=== PATIENT | female | born 1975 | race Caucasian/White ===

== ENCOUNTER 2017-03-28 20:35 | Emergency (ER) | payer MEDICAID, OTHER ==
[~2017-03-28] VITALS: Ht 165.1 cm; Wt 93.7 kg
[~2017-03-28 20:35] MED LIST: LURA80 PO; PALI6 PO; PREN1TAB80 PO
[2017-03-28] MEDS ORDERED: SODIUM CHLORIDE 0.9% 1,000 ML IV ONE (20:43)
[2017-03-28] MEDS ORDERED: ONDANSETRON HCL 4 MG/2 ML VIAL IVP ONE (20:45)
[2017-03-28] MEDS ORDERED: PROZ10 PO (20:46)
[2017-03-28] MEDS ORDERED: DEXT1DRO8 OP (20:46)
[2017-03-28] MEDS ORDERED: OLAN10TA6 PO ×2 (20:46)
[2017-03-28] MEDS ORDERED: BENZ1TAB10 PO (20:46)
[2017-03-28] MEDS ORDERED: RANI150T7 PO (20:46)
[2017-03-28] MEDS ORDERED: LORA0.5T2 PO ×2 (20:46)
[2017-03-28] MEDS ORDERED: ZIPR60CA2 PO (20:46)
[2017-03-28] MEDS ORDERED: LORA1TAB3 PO (20:46)
[2017-03-28] MEDS ORDERED: LORA2VIA32 IV (20:46)
[2017-03-28] MEDS ORDERED: ONDA4 PO (20:46)
[2017-03-28] MEDS ORDERED: OLAN5TAB40 PO (20:46)
[2017-03-28 20:52] LABS: GLUCOSE,POINT OF CARE 121 MG/DL (70-110)
[2017-03-28 21:07] LABS: BASOPHILS % (AUTO) 0.7 % (0.0-2.0); EOSINOPHILS % (AUTO) 0.2 % (1.0-6.0); HEMATOCRIT 40.2 % (36-46); HEMOGLOBIN 13.7 g/dL (12.0-16.0); LYMPHOCYTES % (AUTO) 11.6 % (22.0-44.0); MEAN CORPUSCULAR HEMOGLOBIN 28.7 pg (26.0-34.0); MEAN CORPUSCULAR HGB CONC 34.2 G/dL (31.0-37.0); MEAN CORPUSCULAR VOLUME 84 fL (80-100); MONOCYTES # (AUTO) 1.2 K/uL (0.1-1.0); MONOCYTES % (AUTO) 6.9 % (2.0-9.0); NEUTROPHILS # (AUTO) 14.2 K/uL (1.8-7.7); NEUTROPHILS % (AUTO) 80.6 % (40.0-70.0); PLATELET COUNT (AUTO) 271 K/uL (150-450); RED BLOOD CELL COUNT(AUTO) 4.78 MIL/uL (4.00-5.20); WHITE BLOOD COUNT (AUTO) 17.6 K/uL (4.5-11.0)
[2017-03-28 21:19] LABS: APPEARANCE,URINE CLOUDY (CLEAR); GLUCOSE, URINE (UA) NEGATIVE (NEGATIVE); KETONES,URINE NEGATIVE (NEGATIVE); LEUKOCYTE ESTERASE ,URINE TRACE (NEGATIVE); OCCULT BLOOD,URINE NEGATIVE (NEGATIVE); PH,URINE 6.5 (5.0-8.0); PROTEIN,URINE NEGATIVE (NEGATIVE)
[2017-03-28 21:27] LABS: ADD UA MICROSCOPIC YES
[2017-03-28 21:28] LABS: ANION GAP 13 mmol/L (8-16); CALCIUM, TOTAL 9.5 mg/dL (8.8-10.5); CARBON DIOXIDE 24 mmol/L (22-29); CHLORIDE 103 mmol/L (98-107); CREATININE 0.57 mg/dL (0.60-1.30); GLOMERULAR FILTR. RATE CALC > 60 mL/min (>60); POTASSIUM 3.3 mmol/L (3.5-5.1); SODIUM SERUM 140 mmol/L (136-145); UREA NITROGEN, BLOOD 9 mg/dL (7-18)
[2017-03-28 21:34] LABS: ALANINE AMINOTRANSFERASE 32 U/L (12-78); ALBUMIN 3.8 g/dL (3.4-5.0); ASPARTATE AMINOTRANSFERASE 11 U/L (15-37); BILIRUBIN,TOTAL 0.6 mg/dL (0.1-1.0); TOTAL PROTEIN, SERUM 8.3 g/dL (6.4-8.2)
[2017-03-28 21:39] LABS: RBC,URINE 0-2 /HPF (0-2); SQUAMOUS EPITHELIAL CELL,UR Few /LPF (None Seen)
[2017-03-29 00:33] VITALS: BP 128/75
== END 2017-03-29 01:14 | disposition home or self-care (01) ==
LOC: EMS 20:37
DX: R10.13 Epigastric pain (principal); F17.210 Nicotine dependence, cigarettes, uncomplicated; F19.90 Other psychoactive substance use, unspecified, uncomplicated
CPT/HCPCS: 36415; 74177; 80053; 81001; 82962; 83690; 84702; 85025; 87077; 87086; 87186; 96374; 96375; 99285; J2405; J7030

== ENCOUNTER 2018-07-22 06:32 | Emergency (ER) | payer OTHER ==
[~2018-07-22] VITALS: Ht 170.2 cm; Wt 90.9 kg
[~2018-07-22 06:32] MED LIST changes: +BENZ1TAB10 PO; +DEXT1DRO8 OP; +LORA0.5T2 PO; +LORA1TAB3 PO; +LORA2VIA33 IV; -LURA80 PO; +OLAN10TA6 PO; +OLAN5TAB40 PO; +ONDA4 PO; -PALI6 PO; -PREN1TAB80 PO; +PROZ10 PO; +RANI150T7 PO; +ZIPR60CA2 PO
[2018-07-22] MEDS ORDERED: OXYB5TAB10 PO (06:56)
[2018-07-22] MEDS ORDERED: BISA10SU8 RC (06:56)
[2018-07-22] MEDS ORDERED: LACT10PA5 PO (06:56)
[2018-07-22 07:16] LABS: BASOPHILS % (AUTO) 0.7 % (0.0-2.0); EOSINOPHILS % (AUTO) 0.8 % (1.0-6.0); HEMATOCRIT 37.3 % (36-46); HEMOGLOBIN 12.5 g/dL (12.0-16.0); LYMPHOCYTES # (AUTO) 2.5 K/uL (1.0-4.8); LYMPHOCYTES % (AUTO) 20.2 % (22.0-44.0); MEAN CORPUSCULAR HEMOGLOBIN 28.6 pg (26.0-34.0); MEAN CORPUSCULAR HGB CONC 33.5 G/dL (31.0-37.0); MEAN CORPUSCULAR VOLUME 86 fL (80-100); MONOCYTES # (AUTO) 1.3 K/uL (0.1-1.0); MONOCYTES % (AUTO) 10.7 % (2.0-9.0); NEUTROPHILS # (AUTO) 8.3 K/uL (1.8-7.7); NEUTROPHILS % (AUTO) 67.6 % (40.0-70.0); PLATELET COUNT (AUTO) 221 K/uL (150-450); RED BLOOD CELL COUNT(AUTO) 4.35 MIL/uL (4.00-5.20); RED CELL DISTRIBUTION WIDTH 14.4 % (11.5-14.5)
[2018-07-22 07:29] LABS: ANION GAP 10 mmol/L (8-16); CALCIUM, TOTAL 9.2 mg/dL (8.8-10.5); CARBON DIOXIDE 23 mmol/L (22-29); CHLORIDE 104 mmol/L (98-107); GLOMERULAR FILTR. RATE CALC > 60 mL/min (>60); GLUCOSE,RANDOM 117 mg/dL (70-110); POTASSIUM 3.3 mmol/L (3.5-5.1); SODIUM SERUM 137 mmol/L (136-145); UREA NITROGEN, BLOOD 5 mg/dL (7-18)
[2018-07-22 07:43] LABS: ALANINE AMINOTRANSFERASE 48 U/L (12-78); ALBUMIN 3.5 g/dL (3.4-5.0); ALKALINE PHOSPHATASE 80 U/L (46-116); ASPARTATE AMINOTRANSFERASE 59 U/L (15-37); BILIRUBIN,TOTAL 0.4 mg/dL (0.1-1.0); HCG,QUANTITATIVE < 1 mIU/mL (0-6); TOTAL PROTEIN, SERUM 7.8 g/dL (6.4-8.2)
[2018-07-22 08:25] LABS: AMPHET/METH SCREEN,URINE NEGATIVE (NEGATIVE); BARBITURATE SCREEN, URINE NEGATIVE (NEGATIVE); BENZODIAZEPINES SCREEN,URINE NEGATIVE (NEGATIVE); CANNABINOID SCREEN,URINE NEGATIVE (NEGATIVE); COCAINE SCREEN,URINE NEGATIVE (NEGATIVE); METHADONE SCREEN, URINE NEGATIVE (NEGATIVE); OPIATE SCREEN,URINE NEGATIVE (NEGATIVE); PHENCYCLIDINE SCREEN,URINE NEGATIVE (NEGATIVE)
[2018-07-22 09:22] VITALS: BP 129/85
[2018-07-22] MEDS ORDERED: LORazepam 2 MG TABLET PO ONE (09:30)
[2018-07-22] MEDS ORDERED: HALOPERIDOL 5 MG TABLET PO ONE (09:30)
[2018-07-22] MEDS ORDERED: POTASSIUM CHLORIDE 20 MEQ ER TABLET PO ONE (09:45)
== END 2018-07-22 10:25 | disposition home or self-care (01) ==
LOC: EMS 06:33
DX: F20.9 Schizophrenia, unspecified (principal); F15.10 Other stimulant abuse, uncomplicated; F17.210 Nicotine dependence, cigarettes, uncomplicated; Z90.49 Acquired absence of other specified parts of digestive tract; Z79.899 Other long term (current) drug therapy
CPT/HCPCS: 36415; 80053; 80307; 84702; 85025; 99284; 99406; G0480

== ENCOUNTER 2024-07-29 15:44 | Inpatient (IN) | payer MEDICAID, OTHER ==
[~2024-07-29] VITALS: Ht 170.2 cm; Wt 105.4 kg
[~2024-07-29 15:44] MED LIST changes: +BENZ-247 PO; -BENZ1TAB10 PO; +BISA10SU8 RC; +FLUO10CA24 PO; +LACT10PA5 PO; -LORA0.5T2 PO; +LORA0.5T20 PO; +LORA1TAB25 PO; -LORA1TAB3 PO; +OLAN10TA26 PO; -OLAN10TA6 PO; -OLAN5TAB40 PO; +OLAN5TAB94 PO; +ONDA-104 PO; -ONDA4 PO; +OXYB5 PO; -PROZ10 PO; -ZIPR60CA2 PO; +ZIPR60CA29 PO
[2024-07-29 16:26] LABS: ANION GAP 8 mmol/L (8-16); CALCIUM, TOTAL 9.1 mg/dL (8.8-10.5); CARBON DIOXIDE 28 mmol/L (22-29); CHLORIDE 102 mmol/L (98-107); CREATININE 0.57 mg/dL (0.60-1.30); GLOMERULAR FILTR. RATE CALC > 60 mL/min (>60); GLUCOSE,RANDOM 163 mg/dL (70-110); POTASSIUM 4.1 mmol/L (3.5-5.1); SODIUM SERUM 138 mmol/L (136-145); UREA NITROGEN, BLOOD 8 mg/dL (7-18)
[2024-07-29 16:30] LABS: ALCOHOL, BLOOD (SERUM) < 3 mg/dL (0-10)
[2024-07-29 16:31] LABS: BASOPHILS % (AUTO) 1.2 % (0.0-2.0); HEMATOCRIT 35.6 % (36-46); HEMOGLOBIN 10.9 g/dL (12.0-16.0); LYMPHOCYTES # (AUTO) 3.9 K/uL (1.0-4.8); LYMPHOCYTES % (AUTO) 30.3 % (22.0-44.0); MEAN CORPUSCULAR HEMOGLOBIN 23.1 pg (26.0-34.0); MEAN CORPUSCULAR HGB CONC 30.6 G/dL (31.0-37.0); MEAN CORPUSCULAR VOLUME 76 fL (80-100); MONOCYTES # (AUTO) 1.1 K/uL (0.1-1.0); MONOCYTES % (AUTO) 8.4 % (2.0-9.0); NEUTROPHILS # (AUTO) 7.5 K/uL (1.8-7.7); NEUTROPHILS % (AUTO) 58.1 % (40.0-70.0); RED BLOOD CELL COUNT(AUTO) 4.71 MIL/uL (4.00-5.20); RED CELL DISTRIBUTION WIDTH 19.4 % (11.5-14.5); WHITE BLOOD COUNT (AUTO) 12.8 K/uL (4.5-11.0)
[2024-07-29 16:37] LABS: HCG,QUANTITATIVE < 1 mIU/mL (0-6)
[2024-07-29 16:49] LABS: APPEARANCE,URINE CLEAR (CLEAR); BILIRUBIN,URINE NEGATIVE (NEGATIVE); COLOR,URINE COLORLESS (YELLOW); GLUCOSE, URINE (UA) >=1000 mg/dL (NEGATIVE); KETONES,URINE NEGATIVE (NEGATIVE); LEUKOCYTE ESTERASE ,URINE NEGATIVE (NEGATIVE); NITRATE,URINE NEGATIVE (NEGATIVE); OCCULT BLOOD,URINE NEGATIVE (NEGATIVE); PROTEIN,URINE NEGATIVE (NEGATIVE); SPECIFIC GRAVITIY, URINE 1.003 (1.003-1.030); UROBILINOGEN,URINE <=1.0 mg/dL (<=1.0)
[2024-07-29 16:54] LABS: PLATELET COUNT (AUTO) 239 K/uL (150-450); RBC MORPHOLOGY COMMENT ABNORMAL RBC MORPH
[2024-07-29 16:55] LABS: AMPHET/METH SCREEN,URINE NEGATIVE (NEGATIVE); BARBITURATE SCREEN, URINE NEGATIVE (NEGATIVE); BENZODIAZEPINES SCREEN,URINE NEGATIVE (NEGATIVE); CANNABINOID SCREEN,URINE NEGATIVE (NEGATIVE); COCAINE SCREEN,URINE NEGATIVE (NEGATIVE); METHADONE SCREEN, URINE NEGATIVE (NEGATIVE); OPIATE SCREEN,URINE NEGATIVE (NEGATIVE); PHENCYCLIDINE SCREEN,URINE NEGATIVE (NEGATIVE)
[2024-07-29 16:56] LABS: ALCOHOL, URINE DRUG SCREEN NEGATIVE (NEGATIVE)
[2024-07-29 17:07] LABS: BACTERIA,URINE None Seen /HPF (None Seen); RBC,URINE None Seen /HPF (0-2); SQUAMOUS EPITHELIAL CELL,UR None Seen /LPF (None Seen); WBC,URINE None Seen /HPF (0-5)
[2024-07-29] MEDS ORDERED: HALOPERIDOL 5 MG TABLET PO PRN (17:45)
[2024-07-29 20:21] LABS: COVID AG,FIA SOURCE NASAL SWAB
[2024-07-29 21:38] LABS: SARS-COV2 (COVID) ANTIGEN,FIA Negative (Negative)
[2024-07-30 01:23] VITALS: BP 104/71; PULSE 80; RESP 16; TEMP 97.6; O2SAT 96
[2024-07-30] MEDS ORDERED: BACITRACIN 28 GM OINTMENT TP PRN (06:45)
[2024-07-30] MEDS ORDERED: ONDANSETRON 4 MG TABLET PO PRN (06:45)
[2024-07-30] MEDS ORDERED: MAG HYDROX/ALUMINUM HYD/SIMETH ES 30 ML SUSPENSION UDCUP PO PRN (06:45)
[2024-07-30] MEDS ORDERED: ACETAMINOPHEN 325 MG TABLET PO PRN (06:45)
[2024-07-30] MEDS ORDERED: MAGNESIUM HYDROXIDE SUSPENSION 30 ML UDCUP PO PRN (06:45)
[2024-07-30] MEDS ORDERED: DOCUSATE SODIUM 100 MG CAPSULE PO PRN (06:45)
[2024-07-30] MEDS ORDERED: PETROLATUM,WHITE 28 GM JELLY TP PRN (06:45)
[2024-07-30] MEDS ORDERED: BENZOCAINE/MENTHOL [CEPACOL] LOZENGE PO PRN (06:45)
[2024-07-30] MEDS ORDERED: LOPERAMIDE HCL 2 MG CAPSULE PO PRN (06:45)
[2024-07-30] MEDS ORDERED: IBUPROFEN 600 MG TABLET PO PRN (06:45)
[2024-07-30] MEDS ORDERED: ALBUTEROL SULFATE HFA 90 MCG/PUFF 8 GM INHALER IH PRN (06:45)
[2024-07-30] MEDS ORDERED: CloNIDine HCL 0.1 MG TABLET PO PRN (06:45)
[2024-07-30] MEDS ORDERED: OMEPRAZOLE 20 MG CAPSULE PO PRN (06:45)
[2024-07-30 08:30] VITALS: BP 129/82; PULSE 79; RESP 18; TEMP 98; O2SAT 96
[2024-07-30 20:00] VITALS: RESP 16
[2024-07-30] MEDS: OLANZapine 10 MG TABLET PO SCH (20:47)
[2024-07-31 09:00] VITALS: BP 149/86; PULSE 92; RESP 20; TEMP 97.6
[2024-07-31] MEDS: LORazepam 2 MG TABLET PO PRN (09:26)
[2024-07-31 20:17] VITALS: BP 139/80; PULSE 99; RESP 19; TEMP 98; O2SAT 98
[2024-08-01 08:34] VITALS: RESP 18
[2024-08-01 08:42] LABS: HEMOGLOBIN A1C 6.6 % (3.8-5.6)
[2024-08-01 09:06] LABS: CHOL/HDL RATIO 3.9 (3.9-5.7)
[2024-08-01 09:07] LABS: THYROID STIMULATING HORMONE 7.43 uIU/mL (0.36-3.74)
[2024-08-01 20:00] VITALS: RESP 16
[2024-08-01] MEDS: ZOLPIDEM TARTRATE 10 MG TABLET PO PRN (20:31)
[2024-08-02 08:22] VITALS: BP 154/90; PULSE 98; RESP 16; TEMP 97.9; O2SAT 98
[2024-08-02 20:00] VITALS: RESP 16
[2024-08-03 08:07] VITALS: BP 116/61; PULSE 83; RESP 18; TEMP 97.7; O2SAT 96
[2024-08-03 20:11] VITALS: BP 100/65; PULSE 78; RESP 16; TEMP 97.7; O2SAT 99
[2024-08-04] MEDS: LEVOTHYROXINE SODIUM 25 MCG TABLET PO SCH (05:56)
[2024-08-04 10:07] VITALS: BP 123/57; PULSE 58; RESP 16; TEMP 97.4; O2SAT 99
== END 2024-08-04 13:20 | DRG 750 ==
LOC: EMS 15:44 → B3A 23:08 → UNDOADMIN 23:23
PROVIDERS: ADMIT Psychiatry & Neurology Psychiatry; ATTEND Psychiatry & Neurology Psychiatry
DX: F25.9 Schizoaffective disorder, unspecified (principal); R45.851 Suicidal ideations; D50.9 Iron deficiency anemia, unspecified; E66.9 Obesity, unspecified; F19.10 Other psychoactive substance abuse, uncomplicated; K59.00 Constipation, unspecified; Z20.822 Contact with and (suspected) exposure to COVID-19; F41.9 Anxiety disorder, unspecified; G47.00 Insomnia, unspecified; Z79.899 Other long term (current) drug therapy; Z71.6 Tobacco abuse counseling; Z68.36 Body mass index [BMI] 36.0-36.9, adult; Z82.49 Family history of ischemic heart disease and other diseases of the circulatory system; Z72.0 Tobacco use
CPT/HCPCS: 80048; 80061; 80307; 81001; 83036; 84443; 84702; 85025; 99285; G0480